=== PATIENT | female | born 1950 | race Caucasian/White ===

== ENCOUNTER → 2016-11-05 | Outpatient (CLI) | payer OTHER | LOC: CT 12:45 | DX: R91.1 Solitary pulmonary nodule (principal) | CPT/HCPCS: 71250 ==

== ENCOUNTER → 2020-06-18 | Outpatient (CLI) | payer MEDICARE, OTHER ==
[~2020-06-18] MED LIST: ASMANEX110 MCG INH; CARAFATE1 GM/10 ML PO; CHONDROITIN PO; CLONAZEPAM1 MG PO; FLONASE 0.05% N16 GM; FLUOXETINE HCL20 M1 PO; GLUCOSAMINE HC500 MG PO; LEVOTHYROXINE75 MCG PO; LISINOPRIL30 MG PO; OXYBUTYNIN CHLO15 MG PO; PROBIOTIC1 EAC1 PO; PROTONIX40 MG PO; SINGULAIR10 MG PO; SINUS DECONGEST10 MG PO; VENTOLIN HFA 66.7 GM INH; VITAMIN B-121000 MCG PO; VITAMIN D PO
== END ==
LOC: KOH-I 10:07
DX: J32.9 Chronic sinusitis, unspecified (principal); J34.89 Other specified disorders of nose and nasal sinuses; Z98.890 Other specified postprocedural states
CPT/HCPCS: 70486

== ENCOUNTER → 2020-06-23 | Outpatient (CLI) | payer MEDICARE, OTHER | LOC: HEART 5 16:50 | DX: J45.991 Cough variant asthma (principal); F17.210 Nicotine dependence, cigarettes, uncomplicated | CPT/HCPCS: 94010; 95012 ==

== ENCOUNTER → 2020-07-23 | Outpatient (CLI) | payer MEDICARE, OTHER | LOC: HEART 5 13:32 | DX: J45.50 Severe persistent asthma, uncomplicated (principal) | CPT/HCPCS: 94060; 94729 ==

== ENCOUNTER → 2020-09-22 | Outpatient (CLI) | payer MEDICARE, OTHER | LOC: HEART 5 14:36 | DX: J45.50 Severe persistent asthma, uncomplicated (principal); R94.2 Abnormal results of pulmonary function studies | CPT/HCPCS: 94010; 95012 ==

== ENCOUNTER → 2020-10-26 | Outpatient (CLI) | payer MEDICARE, OTHER | LOC: SLEEP 10:40 | DX: G47.10 Hypersomnia, unspecified (principal); G47.33 Obstructive sleep apnea (adult) (pediatric) | CPT/HCPCS: 95811 ==

== ENCOUNTER 2021-01-20 00:17 | Emergency (ER) | payer MEDICARE ==
[~2021-01-20] VITALS: Ht 165.1 cm; Wt 81.6 kg
[2021-01-20 01:30] LABS: RED BLOOD COUNT 4.76 M/UL (4.00-5.10); WHITE BLOOD COUNT 9.1 K/UL (4.5-11.0)
[2021-01-20 03:39] LABS: BUN/CREATININE RATIO 14 (0-10)
[2021-01-20] MEDS ORDERED: DECADRON6 MG PO (07:33)
[2021-01-20] MEDS ORDERED: VIBRAMYCIN100 MG PO (07:33)
[2021-01-20] MEDS ORDERED: ZOFRAN ODT 4 MG4 MG SL (07:33)
== END 2021-01-20 10:30 | disposition home or self-care (01) ==
LOC: ER1 00:17
PROVIDERS: Physician Assistant
DX: Z23 Encounter for immunization (principal); U07.1 COVID-19; J44.1 Chronic obstructive pulmonary disease with (acute) exacerbation; I10 Essential (primary) hypertension; E03.9 Hypothyroidism, unspecified; Z90.710 Acquired absence of both cervix and uterus
CPT/HCPCS: 36600; 71045; 80053; 82550; 82553; 82803; 83874; 83880; 84484; 85025; 94664; 96374; 96375; 99285; J2405; M0243; U0002

== ENCOUNTER → 2021-11-02 | Outpatient (CLI) | payer MEDICARE ==
[~2021-11-02] MED LIST changes: +DECADRON6 MG PO; +VIBRAMYCIN100 MG PO; +ZOFRAN ODT 4 MG4 MG SL
== END ==
LOC: EXRD 11:01
DX: Z13.820 Encounter for screening for osteoporosis (principal); M85.80 Other specified disorders of bone density and structure, unspecified site; Z78.0 Asymptomatic menopausal state
CPT/HCPCS: 77080

== ENCOUNTER → 2022-01-19 | Outpatient (CLI) | payer MEDICARE | LOC: EXRD 15:05 | DX: M54.50 Low back pain, unspecified (principal); R06.02 Shortness of breath; M79.671 Pain in right foot; M79.672 Pain in left foot; M79.641 Pain in right hand; M79.642 Pain in left hand; G89.29 Other chronic pain; M19.072 Primary osteoarthritis, left ankle and foot; M19.071 Primary osteoarthritis, right ankle and foot; M47.22 Other spondylosis with radiculopathy, cervical region; M47.816 Spondylosis without myelopathy or radiculopathy, lumbar region | CPT/HCPCS: 71046; 72040; 72100; 73130; 73630 ==

== ENCOUNTER → 2022-02-02 | Outpatient (CLI) | payer MEDICARE | LOC: HEART 5 01-19 09:15 | DX: R06.02 Shortness of breath (principal); R53.83 Other fatigue; R68.89 Other general symptoms and signs | CPT/HCPCS: 78452; 93306; A9502; J2785 ==